=== PATIENT | female | born 1965 | race Caucasian/White ===

== ENCOUNTER 2023-08-23 04:57 | Emergency (ER) | payer OTHER ==
[2023-08-23 05:18] VITALS: BP 116/77; PULSE 105; RESP 17; TEMP 98; BMI 20.5
[2023-08-23] MEDS: GABAPENTIN 100 MG CAPSULE PO ONE (06:03)
== END 2023-08-23 06:08 | disposition home or self-care (01) ==
LOC: FER 04:57
DX: B37.0 Candidal stomatitis (principal); L29.9 Pruritus, unspecified
CPT/HCPCS: 99283-25